=== PATIENT | male | born 1985 ===

== ENCOUNTER 2020-03-05 08:51 | Emergency (ER) | payer OTHER ==
[~2020-03-05] VITALS: Ht 175.3 cm; Wt 72.6 kg
[2020-03-05] MEDS ORDERED: Dilantin 100 m100 MG PO (09:19)
[2020-03-05] MEDS ORDERED: LEVE500 PO (09:19)
[2020-03-05] MEDS ORDERED: METH40 PO (09:20)
[2020-03-05] MEDS ORDERED: GABA400 PO (09:20)
[2020-03-05] MEDS ORDERED: IBUP800 PO (09:22)
[2020-03-05] MEDS ORDERED: Amoxicillin875 MG PO (09:22)
== END 2020-03-05 09:30 | disposition home or self-care (01) ==
LOC: ER 08:51
DX: K04.7 Periapical abscess without sinus (principal)
CPT/HCPCS: 99282